=== PATIENT | male | born 1995 | race Caucasian/White ===

== ENCOUNTER 2022-03-15 11:19 | Emergency (ER) | payer MEDICAID, OTHER ==
[~2022-03-15] VITALS: Ht 172.7 cm; Wt 95.3 kg
[2022-03-15 11:38] VITALS: BP_SYST 139
--- NOTE | 2022-03-15 11:48 | NUR ---
Patient back in waiting room after triage, vital are stable and within normal limits adv pt once room is available he will be taken back
--- NOTE | 2022-03-15 12:40 | NUR ---
Pt came in from home reporting 7/10 back pain x 1 month. Denies PMH. Denies trauma. Denies urinary sx. Awaiting further dispo.
--- NOTE | 2022-03-15 12:40 | NUR ---
ER DR Quijano at bedside examining patient
[2022-03-15] MEDS ORDERED: KETOROLAC TROMETHAMINE 60 MG/2 ML VIAL IM ONE (12:45)
[2022-03-15] MEDS ORDERED: HYDROcodone/ACETAMIN 10-325 MG TAB PO ONE (12:45)
[2022-03-15] MEDS ORDERED: SOM350 PO (13:42)
[2022-03-15] MEDS ORDERED: IBUP-1971 PO (13:42)
--- NOTE | 2022-03-15 14:09 | NUR ---
Patient given written and verbal discharge instructions and verbalizes understanding. ER Dr Quijano discussed with patient the results and treatment provided. Patient in stable condition. ID arm band removed. Rx of Motrin and Soma given. Patient educated on pain management and to follow up with PMD. Pain improved. Opportunity for questions provided and answered. Medication side effect fact sheet provided.
[2022-03-15 14:10] VITALS: BP_SYST 139
== END 2022-03-15 14:10 | disposition home or self-care (01) ==
LOC: SED 11:19
DX: S33.5XXA Sprain of ligaments of lumbar spine, initial encounter (principal); W19.XXXA Unspecified fall, initial encounter; Y93.F2 Activity, caregiving, lifting; Y92.89 Other specified places as the place of occurrence of the external cause; Y99.8 Other external cause status
CPT/HCPCS: 72100; 96372; 99283; J1885